=== PATIENT | female | born 1945 | race Caucasian/White ===

== ENCOUNTER 2016-08-09 22:55 | Emergency (ER) | payer MEDICARE, MEDICAID ==
[~2016-08-09] VITALS: Ht 170.2 cm; Wt 86.2 kg
[~2016-08-09 22:55] MED LIST: COLACE100 MG PO; LIPITOR10 MG PO; SYNTHROID25 MCG ORAL; VICODIN 5-5001 EACH PO
[2016-08-09 22:56] VITALS: BP 162/98
--- NOTE | 2016-08-09 23:22 | Emergency Room Report ---
History of Present Illness General Chief Complaint: Dyspnea/Respdistress Source: Patient Present Illness HPI Is a 71-year-old female with a history of hypothyroidism and psoriasis. She presents with chief complaint of coughing congestion for last week. Also with fever and chills. Coughing is yellowish sputum. No nausea no vomiting. Worse with exertion. Worse with inspiration. [id number] medication not helping. Did not get her influenza shot this year. Allergies: Coded Allergies: ASPIRIN (Verified Allergy, Mild, 03/05/11) IBUPROFEN (Verified Allergy, Mild, 03/05/11) Patient History Past Medical History: see triage record, old chart reviewed Past Surgical History: other Pertinent Family History: none Social History: Denies: smoking Last Menstrual Period: N/A Now: No Immunizations: other Reviewed Nursing Documentation: PMH: Agreed, PSxH: Agreed Nursing Documentation-PMH Past Medical History: No Stated History Review of Systems Eye: Denies: blurred vision, eye pain ENT: Denies: ear pain, nose congestion, throat swelling Respiratory: Reports: cough, shortness of breath Cardiovascular: Reports: chest pain, Denies: palpitations Gastrointestinal: Denies: abdominal pain, diarrhea, nausea, vomiting Musculoskeletal: Denies: back pain, joint pain Skin: Denies: rash Neurological: Denies: headache, numbness Endocrine: Denies: increased thirst, increased urine Hematologic/Lymphatic: Denies: easy bruising All Other Systems: negative except mentioned in HPI Physical Exam Vital Signs Date Time Temp Pulse Resp B/P Pulse Ox O2 Delivery O2 Flow Rate FiO2 08/09/16 22:47 98.4 78 30 162/98 98 Non-Rebreather 6.0 vitals with hypertension and hypoxia Sp02 EP Interpretation: abnormal General Appearance: well appearing, alert, mild distress Head: normocephalic, atraumatic Eyes: bilateral eye EOMI, bilateral eye PERRL ENT: hearing grossly normal, normal pharynx Neck: full range of motion, supple, no meningismus Respiratory: chest non-tender, decreased breath sounds, rhonchi, wheezing Cardiovascular #1: regular rate, rhythm, no murmur Gastrointestinal: normal bowel sounds, non tender, no mass, no organomegaly, no bruit, non-distended Musculoskeletal: back normal, gait/station normal, normal range of motion Neurologic: alert, oriented x3 Psychiatric: mood/affect normal Skin: warm/dry Medical Decision Making Diagnostic Impression: Primary Impression: Respiratory distress Additional Impressions: Influenza Wheezing ER Course Present with respiratory distress and wheezing. She felt better after breathing treatment and steroid. She started taking Tamiflu from her son. He is an ER doctor at [facility]. She's been on it for 2 days. She has no family history or personal history of asthma. She is slightly wheezing after treatment. Chest x-ray clear. No evidence of pneumonia. No evidence of ACS, PE, dissection to name a few. Even though influenza swab is negative, clinically she has influenza-like illness.She refused to stay. She is competent to leave AGAINST MEDICAL ADVICE. Her other son is here. I tried to convince her to stay. Will discuss the case with her other son on the phone. Lab Results Impression labs unremarkable EKG Diagnostic Results Rate: normal Rhythm: NSR ST Segments: no acute changes Rhythm Strip Diag. Results EP Interpretation: yes Rate: 65 Rhythm: NSR, no PVC's, no ectopy Chest X-Ray Diagnostic Results EP Interpretation: Yes Findings: no consolidation, no effusion, no pneumothorax, no acute cardiopulmonary disease Number of Views: 1 Last Vital Signs Date Time Temp Pulse Resp B/P Pulse Ox O2 Delivery O2 Flow Rate FiO2 08/09/16 22:47 98.4 78 30 162/98 98 Non-Rebreather 6.0 Status: improved Disposition: AGAINST MEDICAL ADVICE Condition: Stable Scripts Prednisone* (PREDNISONE*) 20 Mg Tablet 40 MG ORAL DAILY, #10 TAB Prov: RIGOBERTO PETTY M.D. 08/10/16 Albuterol Sulfate* (ALBUTEROL SULFATE MDI*) 8.5 Gm Hfa.aer.ad 2 PUFF INH Q4H Y for cough/wheezing, #1 EA 0 Refills Prov: RIGOBERTO PETTY M.D. 08/10/16 Additional Instructions: Followup with your tomorrow. You were leaving AGAINST MEDICAL ADVICE. You may have a severe condition that can be life-threatening or severe morbidity. Return if you changed your mind. RIOGBERTO PETTY M.D. Aug 09, 2016 23:22
[2016-08-09] MEDS ORDERED: Solu-MEDROL 125mg Inj IVP ONE (23:30)
[2016-08-09] MEDS ORDERED: Acetaminophen 500mg (ES) tab ORAL ONE (23:30)
[2016-08-09] MEDS ORDERED: Ipratropium 0.02% Inh Soln 2.5ml UD HHN ONE (23:30)
[2016-08-09] MEDS ORDERED: NS 1000ml 2,600 ML IVLG ONE (23:30)
[2016-08-09] MEDS ORDERED: Albuterol ud Inhalation HHN ONE (23:30)
[2016-08-09 23:42] LABS: APPEARANCE,URINE CLEAR; KETONES,URINE NEGATIVE (NEGATIVE); LEUKOCYTE ESTERASE ,URINE NEGATIVE (NEGATIVE); NITRITE,URINE NEGATIVE (NEGATIVE); PH,URINE 7 (4.5-8.0); PROTEIN,URINE NEGATIVE (NEGATIVE); UROBILINOGEN,URINE NORMAL MG/DL (0.0-1.0)
[2016-08-10] MEDS ORDERED: Albuterol ud Inhalation HHN ONE (00:15)
[2016-08-10 00:16] LABS: BASOPHILS % (AUTO) 0.8 % (0.0-2.0); EOSINOPHILS % (AUTO) 2.9 % (0.0-3.0); LYMPHOCYTES % (AUTO) 27.7 % (20.0-45.0); MEAN CORPUSCULAR HEMOGLOBIN 31.3 PG (27.0-31.0); MEAN CORPUSCULAR HGB CONC 32.3 G/DL (32.0-36.0); MEAN CORPUSCULAR VOLUME 97 FL (80-99); MEAN PLATELET VOLUME 6.8 FL (6.5-10.1); MONOCYTES % (AUTO) 8.6 % (1.0-10.0); PLATELET COUNT 245 K/UL (150-450); RED BLOOD COUNT 4.66 M/UL (4.20-5.40); RED CELL DISTRIBUTION WIDTH 13.3 % (11.6-14.8); WHITE BLOOD COUNT 9.9 K/UL (4.8-10.8)
[2016-08-10 00:28] LABS: INR 1.1 (0.9-1.1); PROTHROMBIN TIME 10.8 SEC (9.30-11.50)
[2016-08-10 00:35] LABS: TROPONIN I < 0.30 ng/mL (<=0.30)
[2016-08-10 00:39] LABS: ALANINE AMINOTRANSFERASE 14 U/L (3-33); ALBUMIN/GLOBULIN RATIO 1.3 (1.0-2.7); ANION GAP 11 (5-15); ASPARTATE AMINO TRANSFERASE 15 U/L (5-40); CARBON DIOXIDE 28 mEQ/L (20-30); CHLORIDE 100 mEQ/L (98-107); CREATININE 0.9 mg/dL (0.5-0.9); HEMOLYSIS 9; POTASSIUM 3.9 mEQ/L (3.4-4.9); SODIUM 139 mEQ/L (135-145); TOTAL PROTEIN 7.1 g/dL (6.6-8.7)
[2016-08-10 00:49] LABS: CKMB 1.6 ng/mL (< 3.8)
[2016-08-10 01:13] VITALS: BP 160/95
[2016-08-10] MEDS ORDERED: ALBUTEROL SULF8.5 GM INH (01:13)
[2016-08-10] MEDS ORDERED: PREDNISONE20 MG ORAL (01:13)
--- NOTE | 2016-08-10 10:26 | Diagnostic Imaging Report ---
Indication: SOB Technique: One view of the chest Comparison: none Findings: No acute infiltrates, effusions, or congestion. Tortuous calcified aorta. Normal heart size. Upper mediastinum unremarkable. Better inspiration currently. No significant change otherwise Impression: No acute process.
--- NOTE | 2016-08-12 14:55 | Cardiology Report ---
APPROVED REPORT EKG Measurement Heart [id number] Normal sinus rhythm Normal ECG
== END 2016-08-10 01:13 | disposition left against medical advice (07) ==
LOC: EDBD 22:55 → EMR 23:10
DX: R06.00 Dyspnea, unspecified (principal); R06.2 Wheezing; J11.1 Influenza due to unidentified influenza virus with other respiratory manifestations; E03.9 Hypothyroidism, unspecified; L40.9 Psoriasis, unspecified; Z88.6 Allergy status to analgesic agent
CPT/HCPCS: 36415; 71010; 80053; 81003; 82550; 82553; 83605; 83880; 84484; 85025; 85610; 85730; 86710; 87040; 93005; 94640; 94664; 96374; 96375; 99284; J2930